=== PATIENT | female | born 1975 ===

== ENCOUNTER 2018-10-19 13:48 | Outpatient (CLI) | payer OTHER ==
[~2018-10-19 13:48] MED LIST: DOLOGESIC 500-1 EACH; NORFLEX100MG; REGLAN5 MG/5 ML
== END 2018-10-19 13:51 | disposition home or self-care (01) ==
LOC: MRI 13:48
DX: M50.10 Cervical disc disorder with radiculopathy, unspecified cervical region (principal); M51.16 Intervertebral disc disorders with radiculopathy, lumbar region
CPT/HCPCS: 72141; 72148

== ENCOUNTER 2019-02-04 09:05 | Outpatient (CLI) | payer OTHER | END 2019-02-04 09:13 | disposition home or self-care (01) | LOC: MAMO-SONO 09:05 | DX: Z12.31 Encounter for screening mammogram for malignant neoplasm of breast (principal); Z87.898 Personal history of other specified conditions; N60.11 Diffuse cystic mastopathy of right breast; N60.12 Diffuse cystic mastopathy of left breast ==

== ENCOUNTER 2019-05-19 14:35 | Emergency (ER) | payer OTHER ==
[~2019-05-19] VITALS: Ht 154.9 cm; Wt 54.4 kg
== END 2019-05-19 20:59 | disposition home or self-care (01) ==
LOC: ER 14:35
DX: G43.809 Other migraine, not intractable, without status migrainosus (principal)

== ENCOUNTER 2019-12-17 13:45 | Outpatient (CLI) | payer OTHER | END 2019-12-17 13:47 | disposition home or self-care (01) | LOC: RAD 13:45 | PROVIDERS: ATTEND Orthopaedic Surgery | DX: M48.061 Spinal stenosis, lumbar region without neurogenic claudication (principal) ==

== ENCOUNTER 2019-12-31 14:23 | Outpatient (CLI) | payer OTHER | END 2019-12-31 14:31 | disposition home or self-care (01) | LOC: RAD 14:23 | PROVIDERS: ATTEND Orthopaedic Surgery | DX: S93.492A Sprain of other ligament of left ankle, initial encounter (principal) ==

== ENCOUNTER 2020-06-28 11:23 | Emergency (ER) | payer OTHER ==
[~2020-06-28] VITALS: Ht 154.9 cm; Wt 62.6 kg
== END 2020-06-28 16:41 | disposition home or self-care (01) ==
LOC: ER 11:23
DX: G89.18 Other acute postprocedural pain (principal); M54.5 Low back pain; M51.17 Intervertebral disc disorders with radiculopathy, lumbosacral region

== ENCOUNTER → 2020-08-18 | Outpatient (CLI) | payer OTHER | END | disposition home or self-care (01) | LOC: MRI 11:46 | PROVIDERS: ATTEND Orthopaedic Surgery | DX: M48.06 Spinal stenosis, lumbar region (principal) | CPT/HCPCS: 72148 ==

== ENCOUNTER 2021-12-06 12:32 | Outpatient (CLI) | payer OTHER | END 2021-12-06 12:33 | disposition home or self-care (01) | LOC: LAB 12:32 | PROVIDERS: ATTEND Radiology Diagnostic Radiology | DX: R10.2 Pelvic and perineal pain (principal) ==

== ENCOUNTER 2021-12-23 09:32 | Outpatient (CLI) | payer OTHER | END 2021-12-23 09:49 | disposition home or self-care (01) | LOC: MRI 09:32 | PROVIDERS: ATTEND Student in an Organized Health Care Education/Training Program | DX: R10.2 Pelvic and perineal pain (principal); N93.9 Abnormal uterine and vaginal bleeding, unspecified | CPT/HCPCS: 72196 ==

== ENCOUNTER 2022-03-08 09:10 | Inpatient (IN) | payer OTHER ==
[~2022-03-08] VITALS: Ht 154.9 cm; Wt 59.0 kg
[2022-03-09] MEDS ORDERED: [UNRECOGNIZED DRUG - OTHER] PO (08:53)
[2022-03-09] MEDS ORDERED: CLONAZEP PO (08:55)
[2022-03-09] MEDS ORDERED: WELLBU PO (08:55)
[2022-03-14] MEDS ORDERED: NORETHINDRONE AC5 MG (08:21)
[2022-03-14] MEDS ORDERED: BUPROPION HCL150 M1 (08:21)
[2022-03-14] MEDS ORDERED: CLONAZEPAM1 MG (08:21)
[2022-03-14] MEDS ORDERED: ARIPIPRAZOLE5 MG (08:21)
[2022-03-14] MEDS ORDERED: TRAZODONE HCL100 MG (08:21)
[2022-03-14] MEDS ORDERED: PROAIR HFA8.5 GM (08:21)
[2022-03-14] MEDS ORDERED: RESTORIL30 MG (08:21)
[2022-03-14] MEDS ORDERED: GABAPENTIN800 M1 (08:21)
== END 2022-03-16 18:22 | disposition home or self-care (01) | DRG 743 ==
LOC: OB/GYN 03-14 05:50 → O/R 03-14 05:50 → SURH 03-14 07:30 → OB/GYN 03-14 11:54
PROVIDERS: ADMIT Obstetrics & Gynecology; ATTEND Obstetrics & Gynecology
PROC: 0UT70ZZ Resection of Bilateral Fallopian Tubes, Open Approach (ICD-10-PCS; 2022-03-14)
PROC: 0UT10ZZ Resection of Left Ovary, Open Approach (ICD-10-PCS; 2022-03-14)
PROC: 0UT90ZZ Resection of Uterus, Open Approach (ICD-10-PCS; principal; 2022-03-14 11:30)
DX: D25.9 Leiomyoma of uterus, unspecified (principal); N72 Inflammatory disease of cervix uteri; Z20.822 Contact with and (suspected) exposure to COVID-19; N83.02 Follicular cyst of left ovary; N83.292 Other ovarian cyst, left side